=== PATIENT | female | born 1985 | race Caucasian/White ===

== ENCOUNTER → 2018-02-13 10:47 | Outpatient (CLI) | payer BC, SELFPAY ==
[2018-02-13 12:36] LABS: Glucose Challenge Gest 1H 50g 78 mg/dL (70-140)
[2018-02-13 12:39] LABS: Hematocrit 33.1 % (37-47); Hemoglobin 11.2 g/dl (12.0-15.0); Mean Corp Hgb Conc 33.8 g/gl (32-36); Mean Corpuscular Hgb 32.7 pg (27.0-32.0); Mean Corpuscular Volume 96.8 fL (81-99); Mean Platelet Vol. 9.4 fl (6.2-12.0); Platelet Count 252 K/mm3 (150-450); RBC Distribution Width CV 12.1 % (11.6-14.6); RBC Distribution Width SD 41.3 fl (35.1-43.9); Red Blood Count 3.42 M/mm3 (4.2-5.4); White Blood Count 7.6 K/mm3 (4.4-11.0)
[2018-02-13 12:42] LABS: Scan Indicated on CBC? Y/N NO
== END ==
PROVIDERS: Visit Provider Obstetrics & Gynecology
DX: Z34.83 Encounter for supervision of other normal pregnancy, third trimester (principal)
CPT/HCPCS: 36415; 82950; 85027

== ENCOUNTER → 2018-03-31 11:41 | Outpatient (CLI) | payer BC, SELFPAY ==
[2018-03-31 14:22] LABS: Group B Strep DNA By PCR Negative (Negative); Internal Control PASS; Probe Check PASS; Specimen Processing Control PASS
== END ==
PROVIDERS: Visit Provider Obstetrics & Gynecology
DX: Z36.85 Encounter for antenatal screening for Streptococcus B (principal)
CPT/HCPCS: 87081; 87653

== ENCOUNTER 2018-04-16 06:23 | Outpatient (CLI) | payer BC, SELFPAY ==
[2018-04-16] MEDS: Lactated Ringers 1,000 ML 125 ML IV (06:56)
[2018-04-16 06:58] VITALS: BMI 24.7
[2018-04-16] MEDS: Terbutaline 1 MG/ML Vial 0.25 MG SC (07:35)
--- NOTE | 2018-04-16 13:40 | PCM.OP.BLANK ---
Operative Report Date of Procedure: 04/16/18 - Breech presentation, 37+ wk EGA female Procedure: External Cephalic Version Preprocedure diagnosis: 37 + wk EGA Breech presentation with VTX in maternal RUQ. Postprocedure diagnosis: Attempted external cephalic version Persistent breech presentation NARRATIVE ACCOUNT: NST reactive and no regular UCs noted. Bedside sono performed and confirmed persistent breech presentation with VTX at maternal RUQ. LEANDRO grossly wnl. Posterior fundal placenta noted. Reviewed R,B,alternatives of the external cephalic version. Consent signed and on chart after all questions answered to her and her 's satisfaction. Terbutaline 0.25 mg SC x one given by nurse Under sono guidance to assure tolerance of the procedure, an attempted external cephalic version was performed first with two forward roll attempts, then with two back flip attempts. Fetus remained in persistent breech presentation, with movement of the VTX only between the maternal RUQ and LUQ. FHR showed good tolerance of procedure. Repeat NST after procedure again reassuring, reactive. Plan for primary C/S at 39 wks and pt to follow up in office within a wk for visit.
--- NOTE | 2018-04-16 13:47 | OP.PCM_ITS ---
Operative Report Date of Procedure: 04/16/18 - Breech presentation, 37+ wk EGA female Procedure: External Cephalic Version Preprocedure diagnosis: 37 + wk EGA Breech presentation with VTX in maternal RUQ. Postprocedure diagnosis: Attempted external cephalic version Persistent breech presentation NARRATIVE ACCOUNT: NST reactive and no regular UCs noted. Bedside sono performed and confirmed persistent breech presentation with VTX at maternal RUQ. LEANDRO grossly wnl. Posterior fundal placenta noted. Reviewed R,B ,alternatives of the external cephalic version. Consent signed and on chart after all questions answered to her and her 's satisfaction. Terbutaline 0.25 mg SC x one given by nurse Under sono guidance to assure tolerance of the procedure, an attempted external cephalic version was performed first with two forward roll attempts, then with two back flip attempts. Fetus remained in persistent breech presentation, with movement of the VTX only between the maternal RUQ and LUQ. FHR showed good tolerance of procedure. Repeat NST after procedure again reassuring, reactive. Plan for primary C/S at 39 wks and pt to follow up in office within a wk for visit.
--- NOTE | 2018-04-17 08:26 | OB.TRI.NOTE ---
- Problem List (1) malpresentation Status: Acute History of Present Illness Date of Service: 04/16/18 Was patient seen by the physician?: Yes Reason For Visit: external cephalic version Date of Service: 04/16/18 Gestational age: 37 + wk History of Present Illness: 33 yo female presents for external cephalic version . Breech presentation, with VTX in maternal RUQ. LEANDRO grossly WNL. Home Medications Medication Instructions Recorded [id number]/FA/Omega3/Dha/Fish Oil 2 each PO DAILY 03/25/17 [ Gummies] Calcium Carbonate [Calcium] 500 mg PO DAILY 04/16/18 Ferrous Sulfate [Iron] 325 mg PO BID 04/16/18 Allergies No Known Allergies Allergy (Verified 04/16/18 06:59) Physical Exam General: Alert, Oriented x3, Cooperative, No apparent distress Abdomen: Non Tender - SONO confirms BREECH with VTX in maternal RUQ, Gravid Extremities:: No clubbing, No edema Estimated gestational size: Appropriate for gestational size Presentation: Breech NST - FHR Rate Baby A Baseline: 130-140s avg variability Accels. Variability:: Moderate, Marked Decelerations:: None NST Reactive:: Yes, Appropriate for gestational age FHR Category:: Category I Uterine Activity:: No regular UCs Impression/Plan 37+ wk Primip Breech presentation External cephalic version performed without success. Plan primary C/S if persistent breech presentation by 39 wks. Return to [facility] for visit in 1 wk
--- NOTE | 2018-04-17 08:31 | OB.TRI.HP_ITS ---
- Problem List (1) malpresentation Status: Acute History of Present Illness Date of Service: 04/16/18 Was patient seen by the physician?: Yes Reason For Visit: external cephalic version Date of Service: 04/16/18 Gestational age: 37 + wk History of Present Illness: 33 yo female presents for external cephalic version . Breech presentation , with VTX in maternal RUQ. LEANDRO grossly WNL. Home Medications Medication Instructions Recorded [id number]/FA/Omega3/Dha/Fish Oil 2 each PO DAILY 03/25/17 [ Gummies] Calcium Carbonate [Calcium] 500 mg PO DAILY 04/16/18 Ferrous Sulfate [Iron] 325 mg PO BID 04/16/18 Allergies No Known Allergies Allergy (Verified 04/16/18 06:59) Physical Exam General: Alert, Oriented x3, Cooperative, No apparent distress Abdomen: Non Tender - SONO confirms BREECH with VTX in maternal RUQ, Gravid Extremities:: No clubbing, No edema Estimated gestational size: Appropriate for gestational size Presentation: Breech NST - FHR Rate Baby A Baseline: 130-140s avg variability Accels. Variability:: Moderate, Marked Decelerations:: None NST Reactive:: Yes, Appropriate for gestational age FHR Category:: Category I Uterine Activity:: No regular UCs Impression/Plan 37+ wk Primip Breech presentation External cephalic version performed without success. Plan primary C/S if persistent breech presentation by 39 wks. Return to [facility] for visit in 1 wk
== END 2018-04-16 08:40 | disposition home or self-care (01) ==
LOC: WPOUT 06:31 → WP 06:31
PROVIDERS: Family Provider Family Medicine; PCP Family Medicine; Visit Provider Obstetrics & Gynecology
DX: O32.1XX0 Maternal care for breech presentation, not applicable or unspecified (principal); Z3A.37 37 weeks gestation of pregnancy
CPT/HCPCS: 96360; 96361; 59025; 59050; 59412; 76815; 96372; 99218; J7120; G0378

== ENCOUNTER 2018-04-29 10:00 | Inpatient (IN) | payer BC, SELFPAY ==
[2018-04-24 11:27] VITALS: BMI 24.5
[2018-04-29] VITALS (18 sets, daily range): BP systolic 97–147; BP diastolic 60–94; PULSE 66–91; RESP 16–18; TEMP 36.1–37.1; O2SAT 95–100; BMI 24.6
[2018-04-29 11:06] LABS: Absolute Lymphocyte Count 1.35 X10^3/ul (0.83-4.51); Basophil# 0.01 X10^3/uL; Basophil% 0.1 % (0-1); Eosinophil# 0.06 X10^3/uL; Eosinophils% 0.6 % (0-5); Hematocrit 34.6 % (37-47); Hemoglobin 11.6 g/dl (12.0-15.0); Lymphocyte # 1.35 X10^3/ul (4.0); Lymphocyte % 13.4 % (19-41); Mean Corp Hgb Conc 33.5 g/gl (32-36); Mean Corpuscular Hgb 31.5 pg (27.0-32.0); Mean Platelet Vol. 9.7 fl (6.2-12.0); Monocyte# 0.65 X10^3/uL; Monocyte% 6.4 % (0-10); Neutrophil # 7.98 X10^3/uL (2.7-7.7); Neutrophil % 79.1 % (47-70); Platelet Count 232 K/mm3 (150-450); RBC Distribution Width CV 13.1 % (11.6-14.6); RBC Distribution Width SD 45.3 fl (35.1-43.9); Red Blood Count 3.68 M/mm3 (4.2-5.4); White Blood Count 10.1 K/mm3 (4.4-11.0)
[2018-04-29 11:11] LABS: POSITIVE COUNT NO; POSITIVE DIFFERENTIAL NO; POSITIVE MORPHOLOGY NO
[2018-04-29 11:13] LABS: Partial Thromboplast Time 23.3 Seconds (24.1-36.2); Prothrombin Time (Protime)PT. 12.7 SECONDS (11.7-14.9)
--- NOTE | 2018-04-29 11:37 | NURSING ---
pt is here for a scheduled primary c section for breech del pt is alert and oriented x3, denies pain denies c/o.
[2018-04-29] MEDS: Lactated Ringers 1,000 ML 150 ML IV (11:55)
[2018-04-29] MEDS: Sodium Citrate/Citric Acid 30 ML UDC PO (11:55)
--- NOTE | 2018-04-29 13:10 | PCM.OPRPT ---
Problem List (1) 39 weeks gestation of Status: Acute (2) Breech presentation of fetus Status: Acute Qualifiers: Fetus number: single or unspecified fetus Qualified Code(s): O32.1XX0 - Maternal care for breech presentation, not applicable or unspecified Report of Operation Date of Procedure: 04/29/18 Pre-Operative Diagnosis: 39 2/7wga, breech fetus Post-Operative Diagnosis: 39 2/7wga, breech fetus Surgery/Procedure Performed:: Primary low transverse section aviation safety inspector: Michelle Simon Type of Anesthesia:: Spinal Anesthesiologist: Escobar Sanon Specimen's removed: None Drains: Urine 200 ml Estimated Blood Loss (mL): 700 Fluids Replaced: 1200 ml Description of Procedure: Indications: Ms. Bergman is a 33-year-old 2 para [id number] presenting at 39-2/7 weeks gestational age for scheduled primary section. This is been in breech presentation and prior external cephalic version attempt failed. Following counseling the patient opted to proceed with section. Procedure: The patient was taken to the operating room and spinal analgesia was administered. She is placed in a dorsal supine position with left lateral tilt. The perineum and abdomen were prepped and draped in sterile fashion. And the spinal was found to be adequate. A Pfannenstiel incision was made using a scalpel and brought down to incise the subcutaneous tissue and rectus fascia at the midline. Subcutaneous tissue was bluntly dissected off the fascia laterally. The fascial incision was dissected laterally and cephalad using curved Murrieta scissors. The superior leaflet of the rectus fascia was grasped using Rommel clamps and bluntly dissected and sharply dissected from the underlying rectus muscle. In a similar fashion the inferior rectus fascia was dissected from the underlying muscle. The rectus muscles were bluntly at the midline. The peritoneum was identified and entered [sharply]. The bladder blade was placed into the abdomen and the vesicouterine peritoneal fold identified. The fold was incised and a bladder flap created. Bladder blade was then repositioned to the abdomen. A low transverse hysterotomy was made using the [Metzenbaum scissors] to level of the membranes. The hysterotomy was extended bluntly cephalad and caudad. The membranes were then ruptured revealing clear fluid. The breech was elevated and delivered through the hysterotomy. The infant was delivered to the shoulders using gentle bidirectional rotation. The left then right arm were delivered by gentle sweeping motion and the head delivered spontaneously to reveal a vigorous [female] . The cord was doubly clamped and cut after 30 seconds. The was passed to awaiting [nursery personnel]. The placenta was [expressed] from the uterus and appeared intact on inspection. The uterus was cleared of debris. The hysterotomy was then repaired using 0 Vicryl running lock suture. A second imbricating layer was also placed for additional hemostasis. The bladder blade was removed. The anterior cul-de-sac was cleared of debris. The peritoneum and rectus muscles were reapproximated using 2-0 Vicryl running suture. The rectus fascia was closed using 0 Vicryl running suture. The subcutaneous tissue was sponge irrigated and small capillary bleeding controlled using the Bovie device. The subcutaneous tissue was reapproximated using 2-0 Vicryl by the CONVERTIBLE SOFA BEDSPRING TESTER under my supervision. The skin was closed using 4-0 Monocryl subcuticularly. This was followed by Cavilon and a Silverlon occlusive dressing was placed over the incision. The fundus was firm. The patient was then transferred to the recovery room without complication. Sponge, instrument, and needle counts were correct ?2. Patient tolerated the procedure well. I was present for the entire case. Infant - Apgars 8, 9 , Weight 3480g - Complications None - Admit VTE Documentation VTE Present on Admission: No VTE Mechan Device Prophylaxis: SCD's VTE Pharm Prophylaxis ordered?: No
--- NOTE | 2018-04-29 13:15 | OP.PCM_ITS ---
Problem List (1) 39 weeks gestation of Status: Acute (2) Breech presentation of fetus Status: Acute Qualifiers: Fetus number: single or unspecified fetus Qualified Code(s): O32.1XX0 - Maternal care for breech presentation, not applicable or unspecified Report of Operation Date of Procedure: 04/29/18 Pre-Operative Diagnosis: 39 2/7wga, breech fetus Post-Operative Diagnosis: 39 2/7wga, breech fetus Surgery/Procedure Performed:: Primary low transverse section plaster die maker: Michelle Simon Type of Anesthesia:: Spinal Anesthesiologist: Escobar Saonn Specimen's removed: None Drains: Urine 200 ml Estimated Blood Loss (mL): 700 Fluids Replaced: 1200 ml Description of Procedure: Indications: Ms. Bergman is a 33-year-old 2 para [id number] presenting at 39- 2/7 weeks gestational age for scheduled primary section. This is been in breech presentation and prior external cephalic version attempt failed. Following counseling the patient opted to proceed with section. Procedure: The patient was taken to the operating room and spinal analgesia was administered. She is placed in a dorsal supine position with left lateral tilt. The perineum and abdomen were prepped and draped in sterile fashion. And the spinal was found to be adequate. A Pfannenstiel incision was made using a scalpel and brought down to incise the subcutaneous tissue and rectus fascia at the midline. Subcutaneous tissue was bluntly dissected off the fascia laterally. The fascial incision was dissected laterally and cephalad using curved Murrieta scissors. The superior leaflet of the rectus fascia was grasped using Rommel clamps and bluntly dissected and sharply dissected from the underlying rectus muscle. In a similar fashion the inferior rectus fascia was dissected from the underlying muscle. The rectus muscles were bluntly at the midline. The peritoneum was identified and entered [sharply]. The bladder blade was placed into the abdomen and the vesicouterine peritoneal fold identified. The fold was incised and a bladder flap created. Bladder blade was then repositioned to the abdomen. A low transverse hysterotomy was made using the [Metzenbaum scissors] to level of the membranes. The hysterotomy was extended bluntly cephalad and caudad. The membranes were then ruptured revealing clear fluid. The breech was elevated and delivered through the hysterotomy. The was delivered to the shoulders using gentle bidirectional rotation. The left then right arm were delivered by gentle sweeping motion and the head delivered spontaneously to reveal a vigorous [female] infant. The cord was doubly clamped and cut after 30 seconds. The was passed to awaiting [nursery personnel]. The placenta was [expressed] from the uterus and appeared intact on inspection. The uterus was cleared of debris. The hysterotomy was then repaired using 0 Vicryl running lock suture. A second imbricating layer was also placed for additional hemostasis. The bladder blade was removed. The anterior cul-de-sac was cleared of debris. The peritoneum and rectus muscles were reapproximated using 2-0 Vicryl running suture. The rectus fascia was closed using 0 Vicryl running suture. The subcutaneous tissue was sponge irrigated and small capillary bleeding controlled using the Bovie device. The subcutaneous tissue was reapproximated using 2-0 Vicryl by the HVAC MANAGER under my supervision. The skin was closed using 4-0 Monocryl subcuticularly. This was followed by Cavilon and a Silverlon occlusive dressing was placed over the incision. The fundus was firm. The patient was then transferred to the recovery room without complication. Sponge, instrument, and needle counts were correct ?2. Patient tolerated the procedure well. I was present for the entire case. Infant - Apgars 8, 9 , Weight 3480g - Complications None - Admit VTE Documentation VTE Present on Admission: No VTE Mechan Device Prophylaxis: SCD's VTE Pharm Prophylaxis ordered?: No
[2018-04-29] MEDS: Oxytocin 30 units/NS 500 ml 30 UNITS/500 ML IV.SOLN 167 UNITS IV (13:45)
[2018-04-29] MEDS: Methylergonovine 0.2 MG/ML Ampul IM (13:45)
[2018-04-29] MEDS: Lactated Ringers 1,000 ML 999 ML IV (14:16)
[2018-04-29] MEDS: Ketorolac 30 MG/ML Syringe IV ×2 (18:16→23:54)
[2018-04-29] MEDS: Cefazolin 1 GM/50 ML BAG IV (19:49)
[2018-04-30] VITALS (8 sets, daily range): BP systolic 92–114; BP diastolic 62–79; PULSE 68–80; RESP 16–18; TEMP 36.3–37.7; O2SAT 97–100
[2018-04-30] MEDS: Cefazolin 1 GM/50 ML BAG IV (04:35)
--- NOTE | 2018-04-30 05:48 | PCM.DCCSEC ---
Discharge Diet: No Restrictions Discharge Activity: May Not Drive - for 2 weeks or while taking narcotic pain meds., May not drive while taking narcotic pain medications., May Shower May resume sexual activity in: 6 weeks Lifting Restrictions: 10 lb Call your doctor if your incision/area has: Continuous Slow Oozing, Sudden Increased Bleeding, Increased Pain/ Swelling, Increased Redness, Foul Smelling Discharge Call your doctor if you observe: Fever of 101 or Higher, Inability to urinate, Inability to have a bowel movement, Using more than one pad per hour, Shortness of breath, Chest pain, Calf discomfort, Uncontrolled pain Suture Line Care: Avoid Pulling/Pushing Cleanse incision/area with: Soap & Water Additional Instructions: If you experience any of the following, contact your healthcare provider. Bleeding that soaks a pad every hour for 2 hours Fever 100.4 or higher Unrelieved incision or abdominal pain Swelling, redness, discharge or bleeding from your incision or episiotomy site Your incision begins to separate Problems urinating (including inability to urinate or burning while urinating). Visual changes Severe headache Flu-like symptoms Pain or redness in one of both of your breasts Pain, warmth, tenderness or swelling in your legs, especially the calf area Frequent nausea and vomiting Symptoms of depression or anxiety If you experience any of the following, call 911 or go to the nearest Emergency Room. Chest pain Problems breathing Seizure activity Partial or complete paralysis of a body part, slurred speech, weakness or drooping of the face, or a sudden inability to walk or hold your balance Allergies/Adverse Reactions: Allergies No Known Allergies Allergy (Verified 04/16/18 06:59) Medications to take at Discharge [id number]/FA/Omega3/Dha/Fish Oil [ Gummies] 2 each PO DAILY 03/25/17 Calcium Carbonate [Calcium] 500 mg PO DAILY 04/16/18 Ferrous Sulfate [Iron] 325 mg PO BID 04/16/18 Docusate Sodium [Colace] 100 mg PO BID PRN PRN #60 cap 04/30/18 Ibuprofen 600 mg PO TID PRN #30 tab 04/30/18 Oxycodone [Oxyir] 1 - 2 tab PO Q4H PRN PRN 3 Days #28 tablet 04/30/18 The following prescriptions were given: Oxycodone [Oxyir] 1 - 2 tab PO Q4H PRN PRN 3 Days #28 tablet PRN Reason: Pain Docusate Sodium [Colace] 100 mg PO BID PRN PRN #60 cap PRN Reason: Constipation Ibuprofen 600 mg PO TID PRN #30 tab PRN Reason: Pain Follow-Up: Call to make an appointment with your doctor for an incision check in 1-2 weeks. You will also need a 6 week post- follow up appointment. Please Follow Up With: Varsha Goyal MD When: May 12 at 9am Primary Care Physician: Siva Bragg [Primary Care Provider] -
--- NOTE | 2018-04-30 05:52 | DCINST_ITS ---
Discharge Diet: No Restrictions Discharge Activity: May Not Drive - for 2 weeks or while taking narcotic pain meds., May not drive while taking narcotic pain medications., May Shower May resume sexual activity in: 6 weeks Lifting Restrictions: 10 lb Call your doctor if your incision/area has: Continuous Slow Oozing, Sudden Increased Bleeding, Increased Pain/ Swelling, Increased Redness, Foul Smelling Discharge Call your doctor if you observe: Fever of 101 or Higher, Inability to urinate, Inability to have a bowel movement, Using more than one pad per hour, Shortness of breath, Chest pain, Calf discomfort, Uncontrolled pain Suture Line Care: Avoid Pulling/Pushing Cleanse incision/area with: Soap & Water Additional Instructions: If you experience any of the following, contact your healthcare provider. * Bleeding that soaks a pad every hour for 2 hours * Fever 100.4 or higher * Unrelieved incision or abdominal pain * Swelling, redness, discharge or bleeding from your incision or episiotomy site * Your incision begins to separate * Problems urinating (including inability to urinate or burning while urinating) . * Visual changes * Severe headache * Flu-like symptoms * Pain or redness in one of both of your breasts * Pain, warmth, tenderness or swelling in your legs, especially the calf area * Frequent nausea and vomiting * Symptoms of depression or anxiety If you experience any of the following, call 911 or go to the nearest Emergency Room. * Chest pain * Problems breathing * Seizure activity * Partial or complete paralysis of a body part, slurred speech, weakness or drooping of the face, or a sudden inability to walk or hold your balance Allergies/Adverse Reactions: Allergies No Known Allergies Allergy (Verified 04/16/18 06:59) Medications to take at Discharge [id number]/FA/Omega3/Dha/Fish Oil [ Gummies] 2 each PO DAILY 03/25/17 Calcium Carbonate [Calcium] 500 mg PO DAILY 04/16/18 Ferrous Sulfate [Iron] 325 mg PO BID 04/16/18 Docusate Sodium [Colace] 100 mg PO BID PRN PRN #60 cap 04/30/18 Ibuprofen 600 mg PO TID PRN #30 tab 04/30/18 Oxycodone [Oxyir] 1 - 2 tab PO Q4H PRN PRN 3 Days #28 tablet 04/30/18 The following prescriptions were given: Oxycodone [Oxyir] 1 - 2 tab PO Q4H PRN PRN 3 Days #28 tablet PRN Reason: Pain Docusate Sodium [Colace] 100 mg PO BID PRN PRN #60 cap PRN Reason: Constipation Ibuprofen 600 mg PO TID PRN #30 tab PRN Reason: Pain Follow-Up: Call to make an appointment with your doctor for an incision check in 1-2 weeks. You will also need a 6 week post- follow up appointment. Please Follow Up With: Varsha Goyal MD When: May 12 at 9am Primary Care Physician: Siva Bragg [Primary Care Provider] -
[2018-04-30] MEDS: Ketorolac 30 MG/ML Syringe IV ×3 (06:13→18:29)
[2018-04-30 06:42] LABS: Hematocrit 31.9 % (37-47); Hemoglobin 10.9 g/dl (12.0-15.0); Mean Corp Hgb Conc 34.2 g/gl (32-36); Mean Corpuscular Hgb 32.7 pg (27.0-32.0); Mean Corpuscular Volume 95.8 fL (81-99); Mean Platelet Vol. 9.3 fl (6.2-12.0); Platelet Count 217 K/mm3 (150-450); RBC Distribution Width CV 12.9 % (11.6-14.6); RBC Distribution Width SD 43.3 fl (35.1-43.9); Red Blood Count 3.33 M/mm3 (4.2-5.4); White Blood Count 15.2 K/mm3 (4.4-11.0)
[2018-04-30 06:46] LABS: Scan Indicated on CBC? Y/N NO
--- NOTE | 2018-04-30 08:28 | PCM.PN.OB ---
Patient Problems: Active and Suspected Problems delivery delivered (Acute) 39 weeks gestation of (Acute) Breech presentation of fetus (Acute) Subjective: POD#1 C section Doing well. Pain control adequate. - Physical Exam General: Alert, Oriented x3, Cooperative, No apparent distress HEENT: Atraumatic Neck: Supple Abdomen: Soft - Minimally tender c/w postop status Skin: Incision - Dressing appears soaked. L margin of Mepilex with large blood stained area marked, no extension beyond marking. (Per RN: happened with turning over in bed). Mepilex removed. Incision beneath CDI. Fresh Mepilex applied. Neurological: Cranial nerves II-XII grossly intact Psych/Mental Status: Normal Affect Vital Signs Temp Pulse Resp BP Pulse Ox 98.8 F 77 16 98/62 99 04/30/18 04:00 04/30/18 04:00 04/30/18 04:00 04/30/18 04:00 04/30/18 04:00 Oxygen Delivery Method Room Air Weight: 67.132 kg Body Mass Index (BMI) 24.6 Intake and Output for Last 24 Hours 04/28/18 04/29/18 04/30/18 23:59 23:59 23:59 Intake Total 1000 / 1000 1000 / 1000 Output Total 1400 / 1400 900 / 900 Balance -400 / -400 100 / 100 Laboratory Tests Past 24 Hrs 04/29/18 04/29/18 04/29/18 10:45 10:45 10:45 WBC 10.1 RBC 3.68 L Hgb 11.6 L Hct 34.6 L MCV 94.0 MCH 31.5 MCHC 33.5 RDW 13.1 RDW Differential 45.3 H Plt Count 232 MPV 9.7 Immature Gran % (Auto) 0.400 Neut % (Auto) 79.1 H Lymph % (Auto) 13.4 L [place] % (Auto) 6.4 Eos % (Auto) 0.6 Baso % (Auto) 0.1 Absolute Neuts (auto) 8.0 H Absolute Lymphs (auto) 1.35 Total Counted Not Reportable PT 12.7 INR 1.0 APTT 23.3 L Blood Type A POSITIVE Antibody Screen NEGATIVE 04/30/18 06:15 WBC 15.2 H RBC 3.33 L Hgb 10.9 L Hct 31.9 L MCV 95.8 MCH 32.7 H MCHC 34.2 RDW 12.9 RDW Differential 43.3 Plt Count 217 MPV 9.3 Immature Gran % (Auto) Neut % (Auto) Lymph % (Auto) [place] % (Auto) Eos % (Auto) Baso % (Auto) Absolute Neuts (auto) Absolute Lymphs (auto) Total Counted PT INR APTT Blood Type Antibody Screen Medical Necessity - Tobacco Use Smoking Status: Never smoker Assessment/Plan All Active Problems delivery delivered (Acute) malpresentation (Acute) 39 weeks gestation of (Acute) Breech presentation of fetus (Acute) Cervical dysplasia (Acute) POD#1 S/P C section for breech Stable postop. inc diet and activity as tolerated. d/C yousif for voiding trial. Begin po meds. S/L IV for continue toradol continue care.
[2018-04-30] MEDS: 0.9% Saline Lock 10 ML Syringe IV ×2 (12:26→18:30)
[2018-04-30] MEDS: Senna/Docusate Sodium 1 Tablet PO (16:20)
[2018-05-01] MEDS: 0.9% Saline Lock 10 ML Syringe IV (00:20)
[2018-05-01] MEDS: Ketorolac 30 MG/ML Syringe IV (00:20)
[2018-05-01 01:37] VITALS: BP 105/70; PULSE 68; RESP 18; TEMP 36.1; O2SAT 97
--- NOTE | 2018-05-01 07:25 | PN.OBGYN_ITS ---
Patient Problems: Active and Suspected Problems delivery delivered (Acute) 39 weeks gestation of (Acute) Breech presentation of fetus (Acute) Subjective: POD#2 primary C/S for breech presentation Doing well. Milk starting to come in. Minimal bleeding reported. Pain control adequate. requesting to go home today. - Physical Exam General: Alert, Oriented x3, Cooperative, No apparent distress HEENT: Atraumatic Neck: Supple Abdomen: Soft - fundus firm minimally tender c/w postop status. Fundus at umbilicus Skin: Incision - mepilex dressing dry and intact, no shadow drainage noted ( drsg replaced yesterday) Neurological: Cranial nerves II-XII grossly intact Psych/Mental Status: Normal Affect Vital Signs Temp Pulse Resp BP Pulse Ox 97.0 F L 68 18 105/70 97 05/01/18 01:37 05/01/18 01:37 05/01/18 01:37 05/01/18 01:37 05/01/18 01:37 Oxygen Delivery Method Room Air Weight: 67.132 kg Body Mass Index (BMI) 24.6 Intake and Output for Last 24 Hours 04/29/18 04/30/18 05/01/18 23:59 23:59 23:59 Intake Total 1000 / 1000 1000 / 1000 Output Total 1400 / 1400 2400 / 2400 Balance -400 / -400 -1400 / -1400 Medical Necessity - Tobacco Use Smoking Status: Never smoker Assessment/Plan All Active Problems delivery delivered (Acute) malpresentation (Acute) 39 weeks gestation of (Acute) Breech presentation of fetus (Acute) Cervical dysplasia (Acute) POD#2 S/P C section for breech Stable postop. Requests discharge home today. RTO in 2 wk for postop check.
--- NOTE | 2018-05-01 07:25 | PCM.DC.SUM ---
Discharge Date and Diagnosis - Problem List Patient Problems: Active and Suspected Problems delivery delivered (Acute) 39 weeks gestation of (Acute) Breech presentation of fetus (Acute) Date of Admission: 04/29/18 - Breech presentation, sched C/S Date of Discharge: 05/01/18 - S/P primary C section - Primary Discharge Diagnosis Active and Suspected Problems delivery delivered (Acute) 39 weeks gestation of (Acute) Breech presentation of fetus (Acute) Hospital Course and Treatment Operations: - - Primary C section Summary of Care Provided: The patient is a 33 year old F at 39 wk EGA presents for scheduled C/S due to persistent breech presentation, failed trial of external cephalic version. Delivered by uncompliated C section on 04/29/18 of a galvez viable female /postop course uneventful. Requesting dischg home on POD#2 Stable for discharge. Discharge Diet: No Restrictions Discharge Activity: May Not Drive - for 2 weeks or while taking narcotic pain meds., May not drive while taking narcotic pain medications., May Shower May resume sexual activity in: 6 weeks Call your doctor if your incision/area has: Continuous Slow Oozing, Sudden Increased Bleeding, Increased Pain/ Swelling, Increased Redness, Foul Smelling Discharge Call your doctor if you observe: Fever of 101 or Higher, Inability to urinate, Inability to have a bowel movement, Using more than one pad per hour, Shortness of breath, Chest pain, Calf discomfort, Uncontrolled pain Suture Line Care: Avoid Pulling/Pushing Cleanse incision/area with: Soap & Water Home Medications: Medications to take at Discharge [id number]/FA/Omega3/Dha/Fish Oil [ Gummies] 2 each PO DAILY 03/25/17 Calcium Carbonate [Calcium] 500 mg PO DAILY 04/16/18 Ferrous Sulfate [Iron] 325 mg PO BID 04/16/18 Docusate Sodium [Colace] 100 mg PO BID PRN PRN #60 cap 04/30/18 Ibuprofen 600 mg PO TID PRN #30 tab 04/30/18 Oxycodone [Oxyir] 1 - 2 tab PO Q4H PRN PRN 3 Days #28 tablet 04/30/18 Following Prescrptions Were Given to Patient: Oxycodone [Oxyir] 1 - 2 tab PO Q4H PRN PRN 3 Days #28 tablet PRN Reason: Pain Docusate Sodium [Colace] 100 mg PO BID PRN PRN #60 cap PRN Reason: Constipation Ibuprofen 600 mg PO TID PRN #30 tab PRN Reason: Pain Primary Care Physician: Siva Bragg [Primary Care Provider] - Please Follow Up With: Varsha Goyal MD When: Saturday, May 12 at 9am Medical Necessity - Tobacco Use Smoking Status: Never smoker Meaningful Use Info Meaningful Use Diagnoses (Choose all that apply): None applicable
[2018-05-01] MEDS: Ibuprofen 600 MG Tablet PO (08:18)
[2018-05-01 09:30] VITALS: BP 104/67; PULSE 72; RESP 16; TEMP 37.1
--- NOTE | 2018-05-01 09:51 | NURSING ---
discharge instructions reviewed pt verbalizes understanding
[2018-05-01] MEDS: Acetaminophen 500 MG Tablet 1000 MG PO (13:15)
--- NOTE | 2018-05-01 13:19 | NURSING ---
discharge instructions given pt verbalizes understanding pt denies need for any further teaching; infant and maternal bracelet numbers match; placed in car seat per parents dc to home.
== END 2018-05-01 13:55 | disposition home or self-care (01) | DRG 766 ==
PROVIDERS: Admitting Provider Obstetrics & Gynecology; Family Provider Family Medicine; PCP Family Medicine; Visit Provider Obstetrics & Gynecology
PROC: 10D00Z1 Extraction of Products of Conception, Low, Open Approach (ICD-10-PCS; CPT 59514; principal; 2018-04-29 11:45)
DX: O32.1XX0 Maternal care for breech presentation, not applicable or unspecified (principal); O99.89 Other specified diseases and conditions complicating pregnancy, childbirth and the puerperium; N87.9 Dysplasia of cervix uteri, unspecified; Z86.718 Personal history of other venous thrombosis and embolism; Z79.82 Long term (current) use of aspirin; Z3A.39 39 weeks gestation of pregnancy; Z37.0 Single live birth
CPT/HCPCS: 85025; 85027; 85610; 85730; 86850; 86900; 99218; J7120; A4216; G0378

== ENCOUNTER → 2018-06-09 14:18 | Outpatient (CLI) | payer BC, SELFPAY ==
[2018-06-12 08:04] LABS: HPV APTIMA, High Risk Negative (Negative)
== END ==
PROVIDERS: Visit Provider Obstetrics & Gynecology
DX: R87.612 Low grade squamous intraepithelial lesion on cytologic smear of cervix (LGSIL) (principal)
CPT/HCPCS: 88175; G0145

== ENCOUNTER → 2019-06-12 14:00 | Outpatient (CLI) | payer BC, SELFPAY ==
[2019-06-19 12:39] LABS: HPV Reflexed? NOT INDICATED
== END ==
PROVIDERS: Visit Provider Obstetrics & Gynecology
DX: Z12.4 Encounter for screening for malignant neoplasm of cervix (principal)
CPT/HCPCS: 88175; G0145

== ENCOUNTER → 2020-04-13 16:53 | Outpatient (CLI) | payer BC, SELFPAY ==
[2018-04-29 10:35] VITALS: BMI 24.6
[2020-04-13 18:49] LABS: Chlamydia Trachomatis by PCR Negative (Negative); Neisserai gonorrhoeae by PCR Negative (Negative); Probe Check PASS; Sample Adequacy Control PASS; Specimen Processing Control PASS
== END ==
PROVIDERS: Referring Provider Obstetrics & Gynecology; Visit Provider Obstetrics & Gynecology
DX: Z11.3 Encounter for screening for infections with a predominantly sexual mode of transmission (principal)
CPT/HCPCS: 87491; 87591

== ENCOUNTER → 2020-04-19 16:26 | Outpatient (CLI) | payer BC, SELFPAY ==
[2018-04-29 10:35] VITALS: BMI 24.6
[2020-04-19 17:46] LABS: hCG Titer Quant., Serum 15407 mIU/mL (1-3)
== END ==
PROVIDERS: Visit Provider Obstetrics & Gynecology
DX: O20.0 Threatened abortion (principal); Z3A.00 Weeks of gestation of pregnancy not specified
CPT/HCPCS: 36415; 84702

== ENCOUNTER 2020-06-09 05:59 | Day surgery (SDC) | payer BC, SELFPAY ==
[2020-06-09] VITALS (9 sets, daily range): BP systolic 106–119; BP diastolic 75–89; PULSE 62–87; RESP 14–16; TEMP 35.8–36.8; O2SAT 96–100; BMI 21.6
[2020-06-09] MEDS: Lactated Ringers 1,000 ML 100 ML IV ×2 (06:36→08:24)
[2020-06-09] MEDS: Doxycycline 100 MG CAPSULE PO (06:46)
[2020-06-09 07:08] LABS: Hemoglobin 11.8 g/dL (12.0-15.0); Mean Corp Hgb Conc 32.8 g/dL (32-36); Mean Corpuscular Hgb 31.6 pg (27.0-32.0); Mean Corpuscular Volume 96.5 fL (81-99); Mean Platelet Vol. 8.9 fl (6.2-12.0); Platelet Count 271 K/mm3 (150-450); RBC Distribution Width CV 12.6 % (11.6-14.6); RBC Distribution Width SD 44.9 fl (35.1-43.9); Red Blood Count 3.73 M/mm3 (4.2-5.4); White Blood Count 5.9 K/mm3 (4.4-11.0)
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
--- NOTE | 2020-06-09 07:30 | POC_PTH ---
PATIENT: CORINA JIN LOC: [facility] U#:[id number] AGE/SX: 35/F ROOM: RE06/09/[address]: Dr. Varsha Valdez MD : 1985 BED: DIS: 06/09/2020 SPEC #: [id number] RECD: 06/09/20 09:16 STATUS: REMI BEATRIZ #: [id number] FRANCOIS: 06/09/20 07:[address]: Varsha Mobley DEPT: SURGICAL PATHOLOGY RECD BY: Marilee Hunt ENTERED: 06/09/20 10:08 SP TYPE: PROD CONC OTHR DR: Dr. Siva Bragg MD Tissues: Product of conception, NOS Procedures: Surgery Specimen Level IV HEADER OPERATION: Suction D & C PRE-OP DIAGNOSIS: Retained products of conception after miscarriage TISSUE SUBMITTED: Products of conception MICROSCOPIC DIAGNOSIS Products of conception: Decidua and immature chorionic villi (products of conception). Fragments of proliferative endometrium with chronic endometritis. SJ:leti 06/10/20 MICROSCOPIC DESCRIPTION Slides are reviewed. GROSS DESCRIPTION Received in fixative is one container labeled with the patient's name and designated products of conception. The specimen consists of multiple fragments of pink, hemorrhagic soft tissue that in aggregate measure 3 x 2.5 x 0.3 cm. tissue is not identified. The entire specimen is submitted in one cassette. / JANIE:leti 06/09/20 TC:5 CPT: 64769
[2020-06-09] MEDS: Silver Nitrate (BKC) 1 EACH (08:03)
--- NOTE | 2020-06-09 08:06 | OP.PCM_ITS ---
Problem List (1) Retained products of conception after miscarriage Status: Acute Report of Operation Date of Procedure: 06/09/20 Pre-Operative Diagnosis: 1. Retained products of conception. 2. Persistent abnormal uterine bleeding Post-Operative Diagnosis: Same Surgery/Procedure Performed:: Suction dilation and curettage sql ssrs developer: None Type of Anesthesia:: Local MAC Anesthesiologist: Luis Enrique Mandel Specimen's removed: Products of conception Estimated Blood Loss (mL): 10 Fluids Replaced: 900 ml Description of Procedure: Indications: 35-year-old 3 para 1-0-1-1 presents for scheduled suction dilatation and curettage for retained products of conception. The patient was seen at the end of April and diagnosed with likely nonviable . She started bleeding almost 2 weeks later. Follow-up ultrasound demonstrated ret ained products of conception. She opted for medical management at the time however she continued to have persistent bleeding and again there is evidence of retained products. She is advised to proceed with suction dilatation and curettage. Procedural risks, benefits and indications and alternatives were reviewed at length. Patient and spouse were given opportunity to ask questions and questions were answered to their satisfaction. Procedure: The patient was brought to the operating room and signed was performed. She is placed in the dorsal supine position and induced under MAC. She was then repositioned into dorsal lithotomy. The perineum was prepped and draped in sterile fashion. A bivalve speculum was placed vaginally the cervix grasped at the anterior cervical lip using a single-tooth tenaculum. A paracervical block was placed using 1% lidocaine without epinephrine. The cervix was up dilated and suction curettage performed using a 7 mm curved curette. This was followed by sharp curettage and again suction curettage until there is no further retrieval of tissue. This portion of the procedure was complete. The tenaculum was removed from the cervix however the tenaculum site was not hemostatic despite compression. Silver nitrate was applied and again followed by compression with good hemostasis obtained. The speculum was removed and the patient was repositioned to dorsal supine position, awakened, and will be transferred to the recovery room. She is tolerated the procedure well. Sponge counts were correct x2. - Admit VTE Documentation VTE Present on Admission: No VTE Mechan Device Prophylaxis: SCD's VTE Pharm Prophylaxis ordered?: No
[2020-06-09 08:09] LABS: Partial Thromboplast Time 27.7 Seconds (24.1-36.2)
--- NOTE | 2020-06-09 08:12 | DCINST_ITS ---
Discharge Diet: No Restrictions Discharge Activity: Return to Normal Activity, May Shower, - - No tub bath for 2 weeks, No tampons for 2 weeks May resume sexual activity in: - - 2-4 weeks Call your doctor if you observe: Fever of 101 or Higher, Inability to urinate, Inability to have a bowel movement, Using more than one pad per hour, Shortness of breath, Chest pain, Calf discomfort, Uncontrolled pain, - - Persistent nausea or vomiting Allergies/Adverse Reactions: Allergies promethazine [From Phenergan] Adverse Reaction (Verified 06/07/20 11:06) Nausea/Vom/Diarrhea MAKES HER MORE SICK, DELUSIONAL Medications to take at Discharge Folic Acid 0.8 mg PO DAILY 06/07/20 Ibuprofen 600 mg PO TID PRN #30 tab 06/09/20 The following prescriptions were given: Ibuprofen 600 mg PO TID PRN #30 tab PRN Reason: pain Transmission Status: Pending to [id number] Orders to be completed after discharge: Type & Screen - PAT ONLY Time Frame: 06/09/20, Facility: [facility], Location: Laboratory Primary Care Physician: Siva Bragg MD [Primary Care Provider] - Test Results: Test results from this visit will be discussed in further detail at your follow- up appointment, if applicable. Please Follow Up With: Varsha Goyal MD When: 2-4 weeks
[2020-06-09] MEDS: HYDROcodone Bitartrate/Apap 5/325 Tablet PO (09:19)
== END 2020-06-09 09:45 | disposition home or self-care (01) ==
LOC: SDC 06:00 → AC 06:01
PROVIDERS: Anesthesiology; PCP Family Medicine; Referring Provider Obstetrics & Gynecology; Visit Provider Obstetrics & Gynecology
PROC: (CPT 59812; principal; 2020-06-09 07:15)
DX: O03.4 Incomplete spontaneous abortion without complication (principal); Z86.711 Personal history of pulmonary embolism; K21.9 Gastro-esophageal reflux disease without esophagitis; Z11.59 Encounter for screening for other viral diseases
CPT/HCPCS: 01965; 59812; 85027; 85610; 85730; 86850; 86900; 86901; 87635; 88305; G2023; J7120; J2405; U0003

== ENCOUNTER → 2022-07-25 | Outpatient (CLI) | payer MEDICAID, BC, SELFPAY ==
[2022-07-31 18:10] LABS: HPV Reflexed? NOT INDICATED
== END | disposition home or self-care (01) ==
PROVIDERS: PCP Family Medicine; Visit Provider Student in an Organized Health Care Education/Training Program
DX: Z12.4 Encounter for screening for malignant neoplasm of cervix (principal)
CPT/HCPCS: 88175; G0145

== ENCOUNTER → 2023-08-02 | Outpatient (CLI) | payer MEDICAID, SELFPAY ==
[2023-08-08 15:08] LABS: HPV APTIMA, High Risk Negative (Negative)
== END | disposition home or self-care (01) ==
LOC: LABSPEC 12:45
PROVIDERS: PCP Family Medicine; Referring Provider Student in an Organized Health Care Education/Training Program; Visit Provider Student in an Organized Health Care Education/Training Program
DX: Z12.4 Encounter for screening for malignant neoplasm of cervix (principal)
CPT/HCPCS: 87624; 88175; G0145

== ENCOUNTER 2025-10-01 16:36 | Outpatient (CLI) | payer MEDICAID, SELFPAY ==
--- NOTE | 2025-10-01 15:00 | LES_PTH ---
PATIENT: CORINA JIN LOC: [facility] U#:[id number] AGE/SX: 40/F ROOM: RE10/01/[address]: Dr. Joao Magallanes MD : 1985 BED: DIS: 10/01/2025 SPEC #: [id number] RECD: 10/01/25 16:11 STATUS: REMI RESangeeta #: [id number] FRANCOIS: 10/01/25 15:[address]: Joao Magallanes DEPT: SURGICAL PATHOLOGY RECD BY: Mehrdad Jean ENTERED: 10/04/25 09:21 SP TYPE: Lesion OTHR DR: Dr. Siva Bragg MD Tissues: A - Suture line of skin B - Chin Procedures: Surgery Specimen Level I Surgery Specimen Level IV HEADER OPERATION: Excision chin lesion, right side neck suture removal PRE-OP DIAGNOSIS: Chin lesion, suture removal TISSUE SUBMITTED: A- Suture - right neck, B- Chin lesion MICROSCOPIC DIAGNOSIS A. Right neck, suture, removal: - Suture material (gross examination only). B. Skin, chin, lesion, excision: - Scar, suggestive of a previous surgical procedure. MICROSCOPIC DESCRIPTION Slides are reviewed. GROSS DESCRIPTION Received in 2 formalin containers labeled with the patient's name and date of . Designated as: A. Suture right neck is a 0.4 x 0.1 x <0.1 cm blue synthetic suture. No sections are submitted. The specimen is for gross examination only. B. Chin lesion is a 0.7 x 0.7 x 0.3 cm scott to light brown-lomeli, hairbearing portion of friable skin, devoid of orientation. The resection margin is fatty and inked black. The specimen is trisected and entirely submitted in 1 cassette. DC 10/04/2025 CPT:44530,26705
--- OUTSIDE RECORDS SUMMARY | 2025-10-01 16:50 | XMS RPT_ITS | CCD ---
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 Date/T mark Not Specified Malignant neoplasm of colon Unknown Cardiac disease Unknown grandfather Alcoholism Unknown Asthma Unknown Malignant neoplasm of prostate Unknown Myocardial infarction 50 Hypertension Unknown mother Anxiety Unknown Arthritis Unknown Depression Unknown brother Asthma Unknown grandmother Arthritis Unknown Malignant neoplasm of skin Unknown Disorder of liver Unknown Malignant melanoma Unknown Chief Complaint and Reason for Visit Chief Complaint Admit Date CYST R CHIN September 09, 2025 1: 58pm Reason for Visit Admit Date Blood clot in leg September 09, 2025 1: 58pm Additional Source Comments Goals (unrecognized section and content) Goals may be documented in a n alternate sectionGoals may be documented in an alternate sectionGoals may be documented in an alternate section Care Teams (unrecognized sec tion and content) Team Status: Active Member Role Status Dates Dr. Siva Bragg MD Primary Care Provider Active Team Status: Inactive Member Role Status Dates Dr. Siva Bragg MD Primary Care Provider Active Dr. Marie Niño DO [facility]ending [facility] Active Team Status: Active Member Role/Relationship Status Dates Dr. Siva Bragg MD Primary care physician Active Team Status: Inactive Member Role/Relationship Status Dates Dr. Siva Bragg MD Primary care physician Active Start: September 09, 2025 End: September 09, 2025 Dr. Siva Bragg MD Referring Provider Active S tart: September 09, 2025 End: September 09, 2025 Dr. Joao Magallanes MD Attending physician Active Start: September 09, 2025 End: September 09, 2025 INFORMATION SOURCE (unrecogn ized section and content) DATE CREATED AUTHOR 09/18/2025 [facility] FOR RECORDS PERTAINING TO PATIENTS WHO ARE OR HAVE BEEN ENROLLED IN A CHEMICAL DEPENDENCY/SUBSTANCEABUSE PROGRAM, SOME INFORMATION MAY BE OMITTED. This clinical summary was aggregated from multiple sources. Caution should be exercised in using it in the provision of clinical care. This summary normalizes information from multiple sources, and as a consequence, information in this document may materially change the coding, format and clinical context of patient data. In addition, data may be omitted in some cases. CLINICAL DECISIONS SHOULD BE BASED ON THE PRIMARY CLINICAL RECORDS. [facility]. provides no warranty or guarantee of the accuracy or completeness of information in this document.
== END 2025-10-01 23:59 | disposition home or self-care (01) ==
LOC: LABSPEC 16:37
PROVIDERS: PCP Family Medicine; Referring Provider Surgery Plastic and Reconstructive Surgery; Visit Provider Surgery Plastic and Reconstructive Surgery
DX: L98.9 Disorder of the skin and subcutaneous tissue, unspecified (principal)
CPT/HCPCS: 88300; 88305